=== PATIENT | male | born 1965 | race Caucasian/White ===

== ENCOUNTER 2016-12-20 16:05 | Emergency (ER) | payer MEDICAID, OTHER ==
[~2016-12-20] VITALS: Ht 160 cm; Wt 70.0 kg
[~2016-12-20 16:05] MED LIST: ACYC800T57 PO; ASPI-664 PO; BACTDS PO; CEPH-443 PO; CLOT30CR24 TOP; GLIP5TAB13 PO; HYD25 PO; HYDR-906 PO; IBUP800T25 PO
[2016-12-20 16:07] VITALS: Ht 160 cm; Wt 70.0 kg
[2016-12-20 17:13] LABS: URINE BLOOD (Dip) POC Negative (NEGATIVE)
--- NOTE | 2016-12-20 17:17 | ERD ---
ER Documentation Chief Complaint Date/Time DATE: 12/20/16 TIME: 17:16 Chief Complaint FEVER AND STATES PIMPLE ON PENIS HPI Patient is a 51-year-old male who presents to the ED with a rash on his penis 1 week. He states that he had this rash last July/2016. He states that the rash is exactly the same way that he had in the past. He states that it is painful around his penis. He denies drainage. He states that he has burning with urination. Denies back pain. Denies fever or chills. States that he is not sexually active. Denies a history of STDs in the past. Denies rashes on any other parts of his body. ROS All systems reviewed and are negative except as per history of present illness. Medications Home Meds Active Scripts Clotrimazole* (Clotrimazole* AF) 1% - 30 Gm Cream.gm., 1 APPLIC TOP BID for 7 Days, TUB Prov:OBIE WALDEN PA-C 12/20/16 Acyclovir* (Zovirax*) 800 Mg Tablet, 800 MG PO 5 TIMES DAILY for 7 Days, TAB Prov:OBIE WALDEN PA-C 12/20/16 Hydrocodone/Acetaminophen ([place] 5-325 Tablet) 1 Each Tablet, 1 TAB PO Q6H Y for PAIN, #20 TAB Prov:LINDA GUTIERREZ PA-C 08/08/16 Ibuprofen* (Motrin*) 800 Mg Tab, 800 MG PO Q6H Y for PAIN AND OR ELEVATED TEMP, #30 TAB Prov:MARTY YANCEY NP 05/22/15 Glipizide* (Glipizide*) 5 Mg Tablet, 5 MG PO DAILY, #10 TAB Prov:JEANINE LARA DO 05/21/15 Aspirin* (Aspirin* EC) 81 Mg Tablet.dr, 81 MG PO DAILY, #30 TAB Prov:JEANINE LARA DO 05/21/15 Hydrochlorothiazide* (Hydrochlorothiazide*) 25 Mg Tab, 25 MG PO DAILY, #14 TAB Prov:JEANINE LARA DO 05/21/15 Cephalexin* (Keflex*) 500 Mg Capsule, 500 MG PO QID for 10 Days, CAP Prov:JEANINE LARA DO 05/21/15 Sulfamethoxazole-Trimethoprim* (Bactrim* DS) 800-160 Mg Tab, 1 TAB PO BID for 10 Days, TAB Prov:JEANINE LARA DO 05/21/15 Allergies Allergies: Coded Allergies: No Known Allergy (Unverified , 05/21/15) PMhx/Soc History of Surgery: No Anesthesia Reaction: No Hx Neurological Disorder: No Hx Respiratory Disorders: No Hx Cardiac Disorders: No Hx Psychiatric Problems: No Hx Miscellaneous Medical Probl: Yes (DM) Hx Alcohol Use: Yes (SOCIAL DRINKER) Hx Substance Use: No Hx Tobacco Use: Yes Smoking Status: Current every day smoker FmHx Family History: No coronary disease, No diabetes, No other Physical Exam Vitals Vital Signs Date Time Temp Pulse Resp B/P Pulse Ox O2 Delivery O2 Flow Rate FiO2 12/20/16 16:07 98.0 79 18 140/80 97 Physical Exam GENERAL: Well-developed, well-nourished male. Appears in no acute distress. LUNG: Clear to auscultation bilaterally. No rhonchi, wheezing, rales or coarse breath sounds. HEART: Regular rate and rhythm. No murmurs, rubs or gallops. : Multiple lesions around penis. Ulcerations around penis. No drainage. No erythema or swelling. No inguinal lymphadenopathy, no testicular swelling or tenderness, uncircumcised penis Extremities: Equal pulses bilaterally. No peripheral clubbing, cyanosis or edema. No unilateral leg swelling. EUROLOGIC: Alert and oriented. Moving all four extremities. 5/5 strength in all extremities. Normal speech. Steady gait. SKIN: Normal color. Warm and dry. No rashes or lesions. Capillary refill < 2 seconds Results 24 hrs Laboratory Tests Test 12/20/16 17:13 Bedside Urine pH (LAB) 5.0 Bedside Urine Protein (LAB) Negative Bedside Urine Glucose (UA) 0.50% Bedside Urine Ketones (LAB) Trace Bedside Urine Blood Negative Bedside Urine Nitrite (LAB) Negative Bedside Urine Leukocyte Esterase (L Negative Procedures/MDM ER COURSE: I kept the patient and/or family informed of laboratory and diagnostic imaging results throughout the emergency room course. MEDICAL DECISION MAKING: This is a 51-year-old male who presents with rash on penis 1 week. Vital signs were reviewed. Patient is afebrile. Patient is not hypoxic. Patient is not toxic or ill-appearing. Urine dipstick does not show any nitrites or leukocytes or hematuria. Patient likely has herpes versus balanitis versus chain choroid. Patient's urine was sent for culture as well as gonorrhea, chlamydia and syphilis. Patient can be treated outpatient only. Low suspicion for necrotizing fasciitis, SJS, toxic epidermal necrolysis, [place], erythema multiforme, gangrene, scarlet fever, meningococcemia, sepsis, anaphylaxis, sepsis, deep space infection, or foreign body. Low suspicion for pyelonephritis , UTI, nephrolithiasis, appendicitis, testicular torsion, incarcerated or strangulated hernia. DISCHARGE: At this time, patient is stable for discharge and outpatient management with no new complaints during the ER course. Patient was sent home with acyclovir and clotrimazole and to follow-up with primary care. I did clean the patient that results will be given to him in 1 week.. Patient will be discharged home with instructions to recheck for new or worsening symptoms such as fever, nausea, weakness, LOC and to follow up with primary care in the next 1-2 days. Patient was advised to return to the ER for any new or worsening symptoms. Plan was discussed and patient and/or family understands and agrees. Home instructions were given. Departure Diagnosis: Primary Impression: Penile rash Condition: Stable OBIE WALDEN PA-C Dec 20, 2016 17:17
[2016-12-20] MEDS ORDERED: CLOT30CR24 TOP (17:20)
[2016-12-20] MEDS ORDERED: ACYC800T57 PO (17:20)
== END 2016-12-20 18:36 | disposition home or self-care (01) ==
LOC: FTE 16:05
DX: R21 Rash and other nonspecific skin eruption (principal); E11.9 Type 2 diabetes mellitus without complications; F17.210 Nicotine dependence, cigarettes, uncomplicated; Z79.82 Long term (current) use of aspirin; Z79.84 Long term (current) use of oral hypoglycemic drugs
CPT/HCPCS: 81003; 86592; 87591; Z7502; 99283

== ENCOUNTER 2017-12-05 10:27 | Emergency (ER) | END 2017-12-05 12:00 | disposition home or self-care (01) ==

== ENCOUNTER 2017-12-09 07:07 | Emergency (ER) | END 2017-12-09 11:30 | disposition home or self-care (01) ==

== ENCOUNTER 2018-04-22 10:25 | Emergency (ER) | END 2018-04-22 14:15 | disposition home or self-care (01) ==

== ENCOUNTER 2018-05-03 10:36 | Emergency (ER) | END 2018-05-03 13:36 | disposition home or self-care (01) ==